=== PATIENT | male | born 1950 | race Caucasian/White ===

== ENCOUNTER 2017-08-21 12:49 | Observation (INO) | payer MEDICARE ==
[~2017-08-21] VITALS: Ht 165.1 cm; Wt 60.4 kg
[~2017-08-21 12:49] MED LIST: ASPIRIN 32325 MG/TAB PO; COREG 3.123.125 MG/T PO; FISH OIL500 MG PO; LIPITOR 80MG80 MG PO; MOBIC 7.5MG7.5 MG PO; NICODERM C21 MG/PATC TOP; NORCO 325 MG-51 TAB PO; PLAVIX 75MG TAB75 MG PO; TYLENOL 325MG325 MG PO; ZESTRIL 5MG5 MG PO; ZOCOR 40MG40 MG PO
[2017-08-21 16:16] VITALS: BP 93/71; PULSE 93; TEMP 98.3
[2017-08-21 17:00] LABS: HEMATOCRIT 39.5 % (42.0-52.0); MEAN CELL VOLUME 105 fl (80.0-100.0); MEAN CORPUSCULAR HEMOGLOBIN 37 pg (27.0-31.0); MEAN CORPUSCULAR HGB CONC 35 g/dl (33.0-37.0); PLATELET COUNT 92 K/mm3 (130-400); RED BLOOD COUNT 3.75 M/mm3 (4.20-5.60); REDCELL DISTRIBUTION WIDTH-CV 13.2 % (11.5-14.5); WHITE BLOOD COUNT 8.5 K/mm3 (4.8-10.8)
[2017-08-21 17:14] LABS: ADJUSTED CALCIUM 8.9 mg/dL (8.4-10.2); ALBUMIN 4.1 gm/dL (3.5-5.0); BILIRUBIN,TOTAL 1.1 mg/dL (0.0-1.0); CREATININE, serum 0.57 mg/dL (0.66-1.25); MAGNESIUM 1.4 mg/dL (1.6-2.3); PHOSPHOROUS 3.9 mg/dL (2.5-4.5); POTASSIUM 3.8 mmol/L (3.4-5.0); TOTAL PROTEIN 6.5 gm/dL (6.4-8.2)
[2017-08-21 17:20] LABS: PROTHROMBIN TIME 10.7 SECONDS (9.7-12.8)
[2017-08-21 17:22] LABS: PARTIAL THROMBOPLASTIN TIME 26.2 SECONDS (26.0-37.0)
[2017-08-21] MEDS ORDERED: ASPIRIN 81M81 MG/TA2 PO (17:39)
[2017-08-21 19:00] VITALS: BP 123/79; PULSE 113; TEMP 98.3
[2017-08-21 21:59] VITALS: BP 129/77; PULSE 111; TEMP 98.2
[2017-08-22] VITALS (11 sets, daily range): BP systolic 109–164; BP diastolic 60–85; PULSE 66–109; TEMP 98.1–98.5
== END 2017-08-22 14:45 | disposition home or self-care (01) ==
LOC: SURG 12:49 → JCC 14:32
PROVIDERS: Surgery
DX: D12.5 Benign neoplasm of sigmoid colon (principal); K57.30 Diverticulosis of large intestine without perforation or abscess without bleeding; I10 Essential (primary) hypertension; I25.10 Atherosclerotic heart disease of native coronary artery without angina pectoris; M19.90 Unspecified osteoarthritis, unspecified site; E78.5 Hyperlipidemia, unspecified; F17.210 Nicotine dependence, cigarettes, uncomplicated; I25.2 Old myocardial infarction; K59.00 Constipation, unspecified; Z95.5 Presence of coronary angioplasty implant and graft; Z80.0 Family history of malignant neoplasm of digestive organs; Z83.3 Family history of diabetes mellitus
CPT/HCPCS: G0378; G0379; J0330; J2704; J7120; Q9967

== ENCOUNTER → 2018-01-01 | Outpatient (CLI) | payer MEDICARE ==
[~2018-01-01] MED LIST changes: +ASPIRIN 81M81 MG/TA2 PO
== END ==
LOC: COL.RAD 08:15
DX: C15.9 Malignant neoplasm of esophagus, unspecified (principal); R91.8 Other nonspecific abnormal finding of lung field; J43.9 Emphysema, unspecified; N32.3 Diverticulum of bladder; M47.816 Spondylosis without myelopathy or radiculopathy, lumbar region
CPT/HCPCS: J7050; Q9967

== ENCOUNTER 2019-02-17 12:12 | Inpatient (IN) | payer MEDICARE ==
[2019-02-17] VITALS (214 sets, daily range): BP systolic 142–184; BP diastolic 85–113; PULSE 76–92; TEMP 97.9–98.8; O2SAT 87–100
[~2019-02-17] VITALS: Ht 165.1 cm; Wt 56.0 kg
--- NOTE | 2019-02-17 12:16 | NUR ---
Patient arrives to ICU 4 via [facility]. He ambulates to bed with steady gait and denies chest pain at this time. Patient is attached to monitors and assesment and vitals are as charted. Care assumed at this time.
[2019-02-17] MEDS ORDERED: PRILOSEC 20MG20 MG PO (13:38)
[2019-02-17] MEDS ORDERED: LEXAPRO 5MG5 MG PO (13:38)
[2019-02-17] MEDS ORDERED: NORCO 325 MG-51 TAB PO (13:39)
[2019-02-17] MEDS ORDERED: NITROSTAT0.4 MG/TAB SL (13:40)
--- NOTE | 2019-02-17 14:24 | NUR ---
Patient departs with pathology laboratory aide staff for [facility]. Signed consent sent with.
--- NOTE | 2019-02-17 14:54 | NUR ---
SEE GWENDOLYN FOR ALL MEDICATION ADMINISTATION TIMES AND INTRA AND POST SEDATION ASSESSMENT
[2019-02-17] MEDS ORDERED: XANAX .25M0.25 MG/TA PO (15:21)
--- NOTE | 2019-02-17 16:16 | NUR ---
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 Prior report recieved from MULUGETA Winslow. Patient right radial site CDI soft and free of hematoma. TR band in place with 12mls inserted reported. Dr. Villa present and visits with patient and . Care ongoing.
[2019-02-17 17:45] LABS: TROPONIN-I 2.12 ng/mL (0.000-0.035)
--- NOTE | 2019-02-17 19:07 | NUR ---
Pt report received from Leigh Fox RN.
--- NOTE | 2019-02-17 19:20 | NUR ---
Pt assessment complete at this time. Pt resting in bed with glasses on. Reports head is hurting although denies any chest pain at this time. When asked about what works for pts headaches prior pt reports "sctoch and water". Pt agreed on trying a glass of water and a heat pack to head for improvement. Will continue to monitor improvement or need for further interventions. TR band with imobilizer in place to right wrist. Personal belongings with in reach. Speech is clear and easy to understand. Pt reports bruising "easily".
--- NOTE | 2019-02-17 21:00 | NUR ---
When talking with the pt diannd medicaiton scheduled although pt refused Lipitor pt reported to staff member "I was prescribed this medication before and it upset my stomach so I just stopped taking it all. I feel like my quality of life is better than quantity."
[2019-02-18] VITALS (596 sets, daily range): BP systolic 85–158; BP diastolic 60–94; PULSE 74–92; TEMP 98.4–98.9; O2SAT 65–100
[2019-02-18 05:49] LABS: BASO % 0.2 % (0.0-2.0); EOS % 0.2 % (0-4.0); GRAN # 4.5 (1.4-6.5); GRAN % 71.7 % (42.2-75.2); HEMOGLOBIN 12.8 g/dl (13.5-18.0); LYMPH # 0.5 (1.2-3.4); LYMPH % 8.2 % (20.0-51.0); MEAN CELL VOLUME 111 fl (80.0-100.0); MEAN CORPUSCULAR HEMOGLOBIN 40 pg (27.0-31.0); MEAN CORPUSCULAR HGB CONC 36 g/dl (33.0-37.0); MEAN PLATELET VOLUME 9.9 fl (7.4-10.4); MONO # 1.2 (0.1-0.6); MONO % 19.1 % (1.7-9.3); PLATELET COUNT 130 K/mm3 (130-400); RED BLOOD COUNT 3.22 M/mm3 (4.20-5.60); REDCELL DISTRIBUTION WIDTH-CV 14.3 % (11.5-14.5)
[2019-02-18 06:05] LABS: CALCIUM 8.8 mg/dL (8.4-10.2); CREATININE, serum 0.55 mg/dL (0.66-1.25); MAGNESIUM 1.6 mg/dL (1.6-2.3); POTASSIUM 4.3 mmol/L (3.4-5.0)
[2019-02-18 06:17] LABS: TROPONIN-I 6.76 ng/mL (0.000-0.035)
[2019-02-18 06:22] LABS: HEMATOCRIT 35.8 % (42.0-52.0)
--- NOTE | 2019-02-18 07:35 | NUR ---
Bedside report provided to Alberta. Pt alert and participating in report at this time.
--- NOTE | 2019-02-18 08:00 | NUR ---
Report received from Natalia DALAL and care resumed. Pt resting upon assessment. Denies any pain. Did have some questions regarding "blockage they couldn't fix." Directed pt to ask the wax room supervisor about this when he comes in today as he would be the only one to explain this. Pt agrees. Vitals stable. Bandaid to right wrist remains clean, dry, and intact. Will continue to follow.
--- NOTE | 2019-02-18 08:14 | NUR ---
Dr Sears in to see pt at this time.
--- NOTE | 2019-02-18 10:12 | NUR ---
Initial visit; Patient states he is hard of hearing; Tipple Oiler offered a blessing in hopes he understood her introduction of Spiritual Care and offer to cookee to him.
--- NOTE | 2019-02-18 10:20 | NUR ---
Dr Villa in to see pt at this time.
--- NOTE | 2019-02-18 10:36 | NUR ---
Critical troponin called to cardiology. States will place further orders. Dr Villa on unit and also notified.
--- NOTE | 2019-02-18 10:40 | NUR ---
CHANDLER gardner attended clinical rounds and followed up with patient after rounds to complete initial intake. Patient lives in [place] with his , Alyssa. The patient does not use any assistive devices and reports independence with ADLs. The patient's PCP is Dr. Hinton and he receives his medications from [facility]. The patient states that he has completed a DPOA-HC and believes [facility] should have a copy. CHANDLER gardner requested a copy from [facility]. CHANDLER student asked patient about alcohol use. Patient reports that he is trying to cut back and estimates drinking a 6 pack of beer a day. Patient reports that he is aware of the side effects of stopping the alcohol use "cold turkey" due to a few of his friends going through the process. Patient also reports that the side effects of stopping "cold turkey" are what killed his son in June of 2018. CHANDLER gardner discussed options and resources for formal outpatient treatment but patient stated that he was not interested. The patient plans to return home with his (Alyssa) upon discharge. No identified needs at this time.
--- NOTE | 2019-02-18 15:05 | NUR ---
Dr Sears called regarding low bp's. No answer and unable to leave voicemail. MULUGETA Nash called and stated will follow up with Dr Sears and place orders.
--- NOTE | 2019-02-18 16:46 | NUR ---
Critical troponin called to Dr Sears. New orders received.
--- NOTE | 2019-02-18 19:10 | NUR ---
Bedside report received from Alberta DALAL. Was notified that physicians are aware of current BP and as long as pt remains asymptomatic, continue to monitor.
--- NOTE | 2019-02-18 19:32 | NUR ---
Report given to Natalia DALAL and care transfered.
--- NOTE | 2019-02-18 19:48 | NUR ---
Westley from CT called regarding head CT order. Prior head CT completed [place] [facility] [place] with disk in pt chart. Notified radiology to hold off at this time until clarification is received on need for repeat.
--- NOTE | 2019-02-18 20:00 | NUR ---
Pt assessment complete. Pt resting in bed at this time. Reports wanting to sit on the edge of the bed in order to use the urinal. Pt reports being worried about anxiety through out the night and reports not being able to sleep well last night and would like to have the best chances to sleep tonight. Agreement was made that pt would notify this nurse if feeling anxious or if in pain so that steps can be made in order for pt to get the most sleep possible. Pt has personal belongings with in reach. Has demonstrated the ability to notify staff of wants and needs.
--- NOTE | 2019-02-18 20:10 | NUR ---
Pt reported hearing and seeing children playing/ making noise. Reported being concerned about anxiety keeping him up tonight. [facility]
[2019-02-19] VITALS (430 sets, daily range): BP systolic 95–117; BP diastolic 69–79; PULSE 69–87; TEMP 98.4–99; O2SAT 68–100
--- NOTE | 2019-02-19 01:00 | NUR ---
Pt has been resting well in between disturbances and need to use the restroom at bedside in the urinal. Pt has not demonstrated any further hallucinations or verbal concern of anxiety.
[2019-02-19 05:12] LABS: BASO % 0.2 % (0.0-2.0); EOS % 0.6 % (0-4.0); GRAN # 3.6 (1.4-6.5); GRAN % 70.4 % (42.2-75.2); HEMOGLOBIN 11.6 g/dl (13.5-18.0); LYMPH # 0.5 (1.2-3.4); LYMPH % 10.2 % (20.0-51.0); MEAN CELL VOLUME 109 fl (80.0-100.0); MEAN CORPUSCULAR HEMOGLOBIN 40 pg (27.0-31.0); MEAN CORPUSCULAR HGB CONC 37 g/dl (33.0-37.0); MEAN PLATELET VOLUME 9.7 fl (7.4-10.4); MONO # 0.9 (0.1-0.6); MONO % 18.2 % (1.7-9.3); PLATELET COUNT 133 K/mm3 (130-400); RED BLOOD COUNT 2.88 M/mm3 (4.20-5.60); REDCELL DISTRIBUTION WIDTH-CV 13.7 % (11.5-14.5)
[2019-02-19 05:14] LABS: HEMATOCRIT 31.3 % (42.0-52.0)
[2019-02-19 05:22] LABS: CALCIUM 8.5 mg/dL (8.4-10.2); CREATININE, serum 0.54 (0.66-1.25); POTASSIUM 3.4 mmol/L (3.4-5.0)
[2019-02-19 05:38] LABS: TROPONIN-I 8.51 ng/mL (0.000-0.035)
--- NOTE | 2019-02-19 07:10 | NUR ---
Report provided to Alberta DALAL
--- NOTE | 2019-02-19 07:10 | NUR ---
Report received from Natalia DALAL and care resumed. Pt resting quietly. Will continue to follow.
--- NOTE | 2019-02-19 08:10 | NUR ---
Charity RN with cardiology, in to see pt. New orders received and clarified regarding BP meds.
--- NOTE | 2019-02-19 09:02 | NUR ---
Pt resting upon assessment. Denies any pain or concerns other then wandering if he will discharge today. Explained that the Dr's would first have to see him and make that decision. States understanding. No other concerns at this time, will continue to follow.
--- NOTE | 2019-02-19 09:30 | NUR ---
Dr Villa in to see pt at this time.
--- NOTE | 2019-02-19 10:03 | NUR ---
Initial visit; Patient thanked Practice Billing Associate for looking in on him and offering spiritual care.
--- NOTE | 2019-02-19 14:01 | NUR ---
Called hospitalist regarding updated plan of care and whether pt would be staying or discharging. Stated will discuss pt all call me back.
[2019-02-19] MEDS ORDERED: IMDUR 30MG30 MG/TAB PO (14:24)
[2019-02-19] MEDS ORDERED: PLAVIX 75MG TAB75 MG PO (14:24)
[2019-02-19] MEDS ORDERED: LIPITOR 40MG TA40 MG PO (14:24)
[2019-02-19] MEDS ORDERED: LOPRESSOR 225 MG/TAB PO (14:25)
[2019-02-19] MEDS ORDERED: DUO-KAPS1 CAP PO (14:26)
[2019-02-19] MEDS ORDERED: THIAMINE 1100 MG/TAB PO (14:26)
[2019-02-19] MEDS ORDERED: COZAAR 25MG25 MG/TAB PO (14:26)
[2019-02-19] MEDS ORDERED: FOLIC ACID 11 MG/TA1 PO (14:26)
[2019-02-19] MEDS ORDERED: MAG-OX 400400 MG/TAB PO (14:27)
--- NOTE | 2019-02-19 15:55 | NUR ---
Pt given discharge instructions and was walked out to front entrance for discharge at this time.
== END 2019-02-19 15:55 | disposition home or self-care (01) | DRG 250 ==
LOC: ICU 12:12
PROVIDERS: Physician Assistant; ADMIT Internal Medicine
PROC: 02703ZZ Dilation of Coronary Artery, One Artery, Percutaneous Approach (ICD-10-PCS; principal; 2019-02-17)
PROC: B2111ZZ Fluoroscopy of Multiple Coronary Arteries using Low Osmolar Contrast (ICD-10-PCS; 2019-02-17)
DX: I21.4 Non-ST elevation (NSTEMI) myocardial infarction (principal); E43 Unspecified severe protein-calorie malnutrition; Z68.1 Body mass index [BMI] 19.9 or less, adult; I50.22 Chronic systolic (congestive) heart failure; E87.1 Hypo-osmolality and hyponatremia; Z66 Do not resuscitate; I11.0 Hypertensive heart disease with heart failure; I25.10 Atherosclerotic heart disease of native coronary artery without angina pectoris; Z95.5 Presence of coronary angioplasty implant and graft; E78.5 Hyperlipidemia, unspecified; F17.210 Nicotine dependence, cigarettes, uncomplicated; F10.10 Alcohol abuse, uncomplicated; Z85.110 Personal history of malignant carcinoid tumor of bronchus and lung; I87.2 Venous insufficiency (chronic) (peripheral); I25.5 Ischemic cardiomyopathy; I73.00 Raynaud's syndrome without gangrene; E87.6 Hypokalemia; E83.42 Hypomagnesemia
CPT/HCPCS: 99223-AI; 99233-AI; 99239; C1725; C1769; C1887; J0360; J1644; J1650; J2060; J2250; J3010; J7030

== ENCOUNTER 2019-03-19 12:04 | Day surgery (SDC) | payer MEDICARE ==
[2019-03-19] VITALS (11 sets, daily range): BP systolic 128–173; BP diastolic 78–124; PULSE 82–93; TEMP 98.4–98.6
[~2019-03-19] VITALS: Ht 165.1 cm; Wt 50.9 kg
[~2019-03-19 12:04] MED LIST changes: +COZAAR 25MG25 MG/TAB PO; +DUO-KAPS1 CAP PO; +FOLIC ACID 11 MG/TA1 PO; +IMDUR 30MG30 MG/TAB PO; +LEXAPRO 5MG5 MG PO; +LIPITOR 40MG TA40 MG PO; +LOPRESSOR 225 MG/TAB PO; +MAG-OX 400400 MG/TAB PO; +NITROSTAT0.4 MG/TAB SL; +PRILOSEC 20MG20 MG PO; +THIAMINE 1100 MG/TAB PO; +XANAX .25M0.25 MG/TA PO
--- NOTE | 2019-03-19 14:19 | NUR ---
Pt returns from endo procedure and ambulates from cart to recliner with RN assist x 1. Pt alert and oriented. Call light within reach. Monitors on and alarms set. Pt has discomfort in chest and abdomen. brought to room. Waiting on food or drink for now.
--- NOTE | 2019-03-19 14:25 | NUR ---
Dr. Grigsby in to visit with patient and . Pt explains that he is in "a lot" of pain. Dr. Grigsby orders hydrocodone 5 mg PO, crushed in applesauce. Pain is intermittent and occurs about every 4 minutes in the epigastric area.
--- NOTE | 2019-03-19 14:41 | NUR ---
All sputum has been clear.
--- NOTE | 2019-03-19 14:41 | NUR ---
Pt given hydrocodone 5 mg crushed in two spoons of applesauce. Pt continues with epigastric sharp pain occurring about every 4 minutes. remains in room. BP elevated. Pt concerned about pain and will spit up about 15 mLs of sputum following each bout of sharp pain.
--- NOTE | 2019-03-19 14:55 | NUR ---
Pt experiencing little to no relief from hydrocodone at this time. Explanation that the stent continues to push outward against the esophagus and will continue to do this probably through the night. This was a repeat of instructions Dr. Grigsby had stated.
--- NOTE | 2019-03-19 15:10 | NUR ---
X-ray here for chest x-ray to check stent placement.
--- NOTE | 2019-03-19 15:20 | NUR ---
Pain remains the same. BP remains elevated. Pt and asking questions about duration of this status of pain. Explanation offered as before, encouragement given, and directives for "keeping on top of the pain" when they get home and prepare to go to sleep. Pt states he has medicine at home that he can take for pain. Pt states he does not desire to spend the night.
--- NOTE | 2019-03-19 15:25 | NUR ---
Dr. Grigsby called with an update on pain, BP, and patient status. Dr. Grigsby orders Fentanyl 50 mcg IV x one dose.
--- NOTE | 2019-03-19 15:32 | NUR ---
Pt experiences significant pain relief following Fentayl administration. Intermittent sharp epigastric pain reducing in frequency. Pt periodically has some clear sputum production and spits it out.
--- NOTE | 2019-03-19 15:50 | NUR ---
Pt experiencing significant relief from pain. Sharp epigastric pain ceases. Periodic clear sputum expelled by patient. Pt desires discharge. This RN explains the need for a reduction in elevated BP before discharge.
--- NOTE | 2019-03-19 15:55 | NUR ---
Discharge instructions given to patient. Handed to them are discharge instructions, a discharge med sheet, procedural photos of the stent and constriction, and diet information provided by [employer] titled "Eating After Esophageal Stent Placement" and obtained from the internet. All questions answered to their satisfaction.
--- NOTE | 2019-03-19 16:20 | NUR ---
Pt transferred out of hospital via wheelchair and this RN to private vehicle driven by .
== END 2019-03-19 16:25 | disposition home or self-care (01) ==
LOC: SDCO 12:04
DX: K22.2 Esophageal obstruction (principal); K44.9 Diaphragmatic hernia without obstruction or gangrene; Z85.118 Personal history of other malignant neoplasm of bronchus and lung; F17.210 Nicotine dependence, cigarettes, uncomplicated; Z95.5 Presence of coronary angioplasty implant and graft; I25.10 Atherosclerotic heart disease of native coronary artery without angina pectoris; I10 Essential (primary) hypertension; I25.2 Old myocardial infarction; E78.5 Hyperlipidemia, unspecified; Z92.3 Personal history of irradiation; Z92.21 Personal history of antineoplastic chemotherapy; Z79.899 Other long term (current) drug therapy; Z79.82 Long term (current) use of aspirin; J44.9 Chronic obstructive pulmonary disease, unspecified; E11.9 Type 2 diabetes mellitus without complications; Z90.49 Acquired absence of other specified parts of digestive tract
CPT/HCPCS: C1726; C1769; J2704; J3010